=== PATIENT | female | born 1970 | race Caucasian/White ===

== ENCOUNTER 2016-12-21 08:30 | Outpatient (CLI) | payer OTHER | END 2016-12-21 08:31 | disposition home or self-care (01) | DX: K11.8 Other diseases of salivary glands (principal) ==

== ENCOUNTER 2019-06-10 12:33 | Outpatient (CLI) | payer BC, OTHER ==
--- NOTE | 2019-06-10 15:23 | Ultrasound Report ---
Reason: ELEVATED LFT Procedure Date: 06/10/2019 Accession Number: [id number] / [id number] Procedure: US - Abdomen Limited CPT Code: FULL RESULT: EXAM: ABDOMEN ULTRASOUND LIMITED, RUQ EXAM DATE: 06/10/2019 01:21 PM. CLINICAL HISTORY: Elevated LFTs. COMPARISON: Abdominal pelvic CT 09/05/2015. TECHNIQUE: Real-time scanning was performed with static images obtained. FINDINGS: Liver: The liver parenchyma is mild to moderately echogenic diffusely. No focal masses or enlargement. The right lobe measures 16.4 cm. Main portal vein flow: Hepatopetal. Gallbladder: Surgically absent. Biliary System: CBD measures 8 mm. No intrahepatic or extrahepatic ductal dilatation. Other: The right kidney is within normal limits. No ascites. IMPRESSION: 1. Mild to moderately fatty infiltrated liver as seen on prior CT. 2. Status post cholecystectomy. RADIA
== END 2019-06-10 12:34 | disposition home or self-care (01) ==
LOC: DI 12:33
PROVIDERS: ATTEND Internal Medicine
DX: K76.0 Fatty (change of) liver, not elsewhere classified (principal); Z90.49 Acquired absence of other specified parts of digestive tract
CPT/HCPCS: 76705

== ENCOUNTER 2019-11-19 08:19 | Emergency (ER) | payer OTHER ==
--- NOTE | 2019-11-19 08:57 | ED Physician Documentation ---
PD HPI ABD PAIN - Stated complaint Stated Complaint: ABD PX/FEVER - Chief complaint Chief Complaint: Abd Pain - History obtained from History obtained from: Patient - History of Present Illness Timing - onset: How many months ago (2-3) Timing - duration: Months Timing - details: Gradual onset, Waxing and waning Quality: Cramping, Aching, Pain Recently seen: Clinic (has seen PMD and also GI in [place] regarding the pain RUQ area, with prior scope, labs and U/S, without showing the cause of her pains.) Review of Systems Constitutional: denies: Fever, Chills Nose: denies: Rhinorrhea / runny nose, Congestion Throat: denies: Sore throat Respiratory: denies: Cough GI: reports: Abdominal Pain, Nausea, Diarrhea (soft since CCY in 1993). denies: Abdominal Swelling, Vomiting, Constipation Skin: denies: Rash, Lesions Musculoskeletal: denies: Neck pain, Back pain PD PAST MEDICAL HISTORY - Past Medical History Cardiovascular: Hypertension Endocrine/Autoimmune: HyPOthyroidism [employer] SAL[employer]ERSON: Other Psych: Anxiety - Past Surgical History Past Surgical History: Yes General: Cholecystectomy Ortho: Carpal Tunnel surgery /[employer]: Endometrial ablation, Hysterectomy - Present Medications Home Medications: Ambulatory Orders Medication Instructions Recorded Confirmed Sertraline HCl [Zoloft] 100 mg PO DAILY 09/06/15 06/26/16 Famotidine 20 mg PO DAILY #30 tablet 11/19/19 Hydrocodone/Acetaminophen [[place] 1 each PO Q6H PRN #20 tablet 11/19/19 5-325 Tablet] Losartan [Cozaar] 50 mg DAILY 11/19/19 11/19/19 Ondansetron Odt [Zofran] 4 mg TL Q6H PRN #20 tablet 11/19/19 Spironolactone 50 mg PO DAILY 11/19/19 11/19/19 Sucralfate [Carafate] 1 gm PO ACHS #60 tablet 11/19/19 busPIRone [Buspar] 10 mg BID 11/19/19 11/19/19 dexAMETHasone [Decadron] 4 mg PO DAILY #7 tablet 11/19/19 metFORMIN [Glucophage] 500 mg BID 11/19/19 11/19/19 - Allergies Allergies/Adverse Reactions: Allergies Allergy/AdvReac Type Severity Reaction Status Date / Time morphine AdvReac Itching Verified 11/19/19 08:31 - Social History Does the pt smoke?: No Smoking Status: Never smoker PD ED PE NORMAL - Vitals Vital signs reviewed: Yes - General General: Alert and oriented X 3, Well developed/nourished, Other (appears in pain) - HEENT HEENT: PERRL (nonicteric), Pharynx benign - Neck Neck: Supple, no meningeal sign, No adenopathy - Cardiac Cardiac: RRR, No murmur - Respiratory Respiratory: Clear bilaterally - Abdomen Abdomen: Normal bowel sounds, Soft, Non distended, No organomegaly, Other (tender RUQ with guarding but no percussion tenderness. ) Results - Vitals Vitals: Vital Signs - 24 hr 11/19/19 11/19/19 11/19/19 08:28 10:31 12:09 Temperature 36.1 C L 36.7 C Heart Rate 84 78 86 Respiratory 16 16 17 Rate Blood Pressure 155/80 H 154/75 H 131/85 H O2 Saturation 100 99 Oxygen O2 Source Room air - Labs Labs: Laboratory Tests 11/19/19 11/19/19 11/19/19 08:38 11:00 11:46 WBC 9.7 RBC 5.42 H Hgb 16.7 H Hct 51.3 H MCV 94.6 MCH 30.8 MCHC 32.6 RDW 14.0 Plt Count 322 MPV 11.1 H Neut # (Auto) 7.0 H Lymph # (Auto) 1.9 [place] # (Auto) 0.7 Eos # (Auto) 0.1 Baso # (Auto) 0.1 Absolute Nucleated RBC 0.00 Nucleated RBC % 0.0 Sodium 138 Potassium 4.1 Chloride 100 L Carbon Dioxide 27 Anion Gap 11.0 BUN 15 Creatinine 0.8 Estimated GFR (MDRD) 77 L Glucose 122 H Calcium 9.5 Total Bilirubin 1.2 H AST 21 ALT 19 Alkaline Phosphatase 40 L Total Protein 8.8 H Albumin 4.9 Globulin 3.9 Albumin/Globulin Ratio 1.3 Lipase 41 Urine Color YELLOW Urine Clarity CLEAR Urine pH 6.0 Ur Specific [place] 1.020 Urine Protein NEGATIVE Urine Glucose (UA) NEGATIVE Urine Ketones NEGATIVE Urine Occult Blood NEGATIVE Urine Nitrite NEGATIVE Urine Bilirubin NEGATIVE Urine Urobilinogen 0.2 (NORMAL) Ur Leukocyte Esterase NEGATIVE Ur Microscopic Review NOT INDICATED Urine Culture Comments NOT INDICATED Urine HCG, Qual NEGATIVE - Rads (name of study) RUQ abd U/S Radiology: Prelim report reviewed (CBD 10 mm, no noted stones. ) PD MEDICAL DECISION MAKING - ED course Complexity details: reviewed results, re-evaluated patient (feeling better with fluids and IV meds. ), considered differential (considered CBD dysfunction, but it appeared normal post op at 10 mm and no stones/sludge. LFTs are reasonable and lipase normal. So would consider gastritis/duodenitis, given the location of the pain, or alternatively some colitis of transverse colon. Consider adhesions as cause of the pain as well. ) Departure - Departure Disposition: 01 Home, Self Care Clinical Impression: Upper abdominal pain Condition: Stable Record reviewed to determine appropriate education?: Yes Instructions: ED Abdominal Pain Unkn Cause Follow-Up: Alfredo Gonzalez MD [Primary Care Provider] - [facility] [Provider Group] Prescriptions: dexAMETHasone [Decadron] 4 mg PO DAILY #7 tablet Famotidine 20 mg PO DAILY #30 tablet Hydrocodone/Acetaminophen [[place] 5-325 Tablet] 1 each PO Q6H PRN #20 tablet PRN Reason: Pain Ondansetron Odt [Zofran] 4 mg TL Q6H PRN #20 tablet PRN Reason: Nausea / Vomiting Sucralfate [Carafate] 1 gm PO ACHS #60 tablet Comments: Your blood test did not show any inflammatory change of the liver or pancreas. Your ultrasound showed a common bile duct about the normal size expected without any signs of stones or sludge. The pain in the upper abdomen then I would think may relate to either some irritation of the stomach or the initial part of the small intestine called the duodenum. We would treat this with medication to reduce stomach acids and also to coat the stomach and duodenum. With your history of colitis, it is possible there may be some inflammation of the colon that passes through the upper abdomen so we could add some Decadron anti-inflammatory for that possibility. Those particular changes typically do not show up well on imaging so I do not see a value of a CT scan or such at this point. Use ondansetron if needed for nausea and hydrocodone if needed for pain. Follow-up with your primary care and/or GI in about a next week, call for an appointment. Return if worsening. Discharge Date/Time: 11/19/19 12:58
[2019-11-19 09:03] LABS: BILIRUBIN,URINE NEGATIVE (NEGATIVE); GLUCOSE, URINE (UA) NEGATIVE (NEGATIVE); KETONES,URINE (UA) NEGATIVE (NEGATIVE); LEUKOCYTE ESTERASE, URINE NEGATIVE (NEGATIVE); NITRITE,URINE NEGATIVE (NEGATIVE); OCCULT BLOOD,URINE NEGATIVE (NEGATIVE); PROTEIN,URINE NEGATIVE (NEGATIVE); UROBILINOGEN,URINE 0.2 (NORMAL) E.U./dL (NORMAL)
[2019-11-19 09:07] LABS: CLARITY,URINE CLEAR (CLEAR); HCG UR QUAL NEGATIVE
[2019-11-19] MEDS ORDERED: MAG HYDROX/AL HYDROX/SIMETH 30 ML UDC PO STA (09:27)
[2019-11-19] MEDS ORDERED: FAMOTIDINE 20 MG/2 ML VIAL IVP STA (09:27)
[2019-11-19] MEDS ORDERED: HYDROmorphone 1 MG/ML CARPUJECT IVP STA ×2 (09:27→11:50)
[2019-11-19] MEDS ORDERED: ONDANSETRON 4 MG/2 ML VIAL IVP STA (09:27)
--- NOTE | 2019-11-19 11:18 | Ultrasound Report ---
Reason: RUQ pain; post CCY, eval CBD Procedure Date: 11/19/2019 Accession Number: [id number] / [id number] Procedure: US - Abdomen Limited CPT Code: Final Report FULL RESULT: EXAM: ABDOMEN ULTRASOUND LIMITED, RUQ EXAM DATE: 11/19/2019 11:01 AM. CLINICAL HISTORY: Right upper quadrant pain; post cholecystectomy, evaluate common bile duct. COMPARISON: ABDOMEN LIMITED 06/10/2019 12:41 PM ABDOMEN/PELVIS W/ 09/05/2015 7:29 PM. TECHNIQUE: Real-time scanning was performed with static images obtained. FINDINGS: Liver: Oval increased parenchymal echogenicity of the liver which limits sensitivity for underlying masses. No mass is seen. Liver spans at least 18.5 cm. Main portal vein flow: Hepatopetal. Gallbladder: Not seen, reported surgically absent. Biliary System: CBD measures 10 mm. This is potentially within the upper limits of normal for status post cholecystectomy. Other: None. IMPRESSION: Status post cholecystectomy. CBD caliber of up to 1 cm, can be normal status post cholecystectomy. RADIA
[2019-11-19 11:35] LABS: BASOPHILS # (AUTO) 0.1 10^3/uL (0.0-0.1); BASOPHILS % (AUTO) 0.7 %; EOSINOPHILS # (AUTO) 0.1 10^3/uL (0.0-0.7); EOSINOPHILS % (AUTO) 0.5 %; HGB - HEMOGLOBIN 16.7 g/dL (12.0-16.0); LYMPHOCYTES # (AUTO) 1.9 10^3/uL (1.5-3.5); LYMPHOCYTES % (AUTO) 19.3 %; MEAN CORPUSCULAR HEMOGLOBIN 30.8 pg (27.0-31.0); MEAN CORPUSCULAR HGB CONC 32.6 g/dL (32.0-36.0); MEAN CORPUSCULAR VOLUME 94.6 fL (81.0-99.0); MEAN PLATELET VOLUME 11.1 fL (7.9-10.8); MONOCYTES # (AUTO) 0.7 10^3/uL (0.0-1.0); MONOCYTES % (AUTO) 6.9 %; NEUTROPHILS % (AUTO) 72.1 %; PLT - PLATELET COUNT 322 10^3/uL (130-450); RED BLOOD COUNT 5.42 10^6/uL (4.20-5.40); WHITE BLOOD COUNT 9.7 x10^3/uL (4.8-10.8)
[2019-11-19] MEDS ORDERED: SUCRALFATE 1 GM/10 ML UDC PO STA (11:50)
[2019-11-19] MEDS ORDERED: DEXAMETHASONE 10 MG/ML VIAL IVP STA (11:51)
[2019-11-19] MEDS ORDERED: KETOROLAC 15 MG/ML VIAL IVP STA (11:51)
[2019-11-19 12:05] LABS: ALBUMIN 4.9 g/dL (3.2-5.5); ALBUMIN/GLOBULIN RATIO 1.3 (1.0-2.2); BILIRUBIN,TOTAL 1.2 mg/dL (0.2-1.0); CALCIUM 9.5 mg/dL (8.5-10.3); CREATININE 0.8 mg/dL (0.4-1.0); TOTAL PROTEIN 8.8 g/dL (6.7-8.2)
[2019-11-19 12:09] VITALS: BP 131/85
== END 2019-11-19 12:58 | disposition home or self-care (01) ==
LOC: ED 08:19
DX: R10.11 Right upper quadrant pain (principal); R11.0 Nausea; R19.7 Diarrhea, unspecified; Z90.49 Acquired absence of other specified parts of digestive tract; I10 Essential (primary) hypertension
CPT/HCPCS: 36415; 76705; 80053; 81003; 81025; 83690; 85025; 96374; 96375; 99284; 99285; A9270; J1170; 81001; 87086

== ENCOUNTER 2021-04-05 15:41 | Outpatient (CLI) | payer OTHER ==
--- NOTE | 2021-04-05 16:27 | XRAY Report ---
PROCEDURE: Hip w/Pelvis 1V RT INDICATIONS: R HIP PX TECHNIQUE: AP pelvis with lateral view(s) of the unilateral right hip(s). COMPARISON: CT abdomen/pelvis 09/05/15. FINDINGS: Bones: No fractures or dislocations. Pelvic ring appears intact. No suspicious bony lesions. Soft tissues: The visualized bowel gas pattern is normal. No suspicious soft tissue calcifications. IMPRESSION: This is a normal study. Source of asymmetric right-sided hip pain is not found. Reviewed by: Tyler Gu MD on 04/05/2021 4:26 PM PDT Approved by: Tyler Gu MD on 04/05/2021 4:26 PM PDT Station ID: [id number]
== END 2021-04-05 15:42 | disposition home or self-care (01) ==
LOC: DI.N 15:41
PROVIDERS: ATTEND Family Medicine
DX: M25.551 Pain in right hip (principal)

== ENCOUNTER 2021-05-31 12:44 | Outpatient (CLI) | payer OTHER ==
--- NOTE | 2021-05-31 16:47 | MRI Report ---
PROCEDURE: Hip RT W/O INDICATIONS: PAIN IN RIGHT HIP TECHNIQUE: Noncontrast coronal T1 spin echo and STIR through the bony pelvis. Coronal and axial T2 fast spin ec ho with fat saturation, sagittal T1 spin echo, and oblique axial T2 fast spin echo with fat saturatio n through the hip. COMPARISON: None. FINDINGS: Bones: No fracture or focal osseous destruction. No avascular necrosis of the femoral heads. Lower lumbar spondylosis and facet arthropathy. Sacroiliac joints: Normal. Tendons: Gluteus minimus: Intact. No atrophy. Gluteus medius: Intact. No atrophy. Iliopsoas tendon: There is mild thickening, T2 hyperintensity and adjacent soft tissue edema at the i nsertion. No complete rupture. No evidence of old fracture. Hamstring tendon origin. Intact. Labrum and cartilage: Acetabular labrum: Intact. Cartilage: Cartilage appears intact. Alpha angle of the femur: Within normal limits at less than 55 degrees. Soft tissues: Visualized muscles: Normal bulk and internal signal. Proximal sciatic neurovascular bundle: Normal. Pelvic free fluid: None. Bladder: Normal. Genitourinary structures and bowel loops: In the included right adnexal region, there is a 1.7 cm cy stic appearing T2 hyperintense lesion on image 36/601. This could be followed up with dedicated ultra sound as clinically warranted. IMPRESSION: Acute strain of the insertion of the iliopsoas tendon. Nonspecific right pelvic cystic-appearing lesion as detailed above measuring 1.7 cm. Further assessme nt and/or long-term surveillance with dedicated ultrasound can be performed as clinically warranted, or MRI if not sonographically visible. Reviewed by: Caleb Velasquez MD on 05/31/2021 4:46 PM PDT Approved by: Caleb Velasquez MD on 05/31/2021 4:46 PM PDT Station ID: [id number]
== END 2021-05-31 12:45 | disposition home or self-care (01) ==
LOC: DI 12:44
PROVIDERS: ATTEND Family Medicine
DX: S76.011A Strain of muscle, fascia and tendon of right hip, initial encounter (principal); N94.89 Other specified conditions associated with female genital organs and menstrual cycle

== ENCOUNTER 2022-11-06 09:13 | Emergency (ER) | payer OTHER ==
[2022-11-06 09:34] VITALS: BP 145/79
--- NOTE | 2022-11-06 10:30 | XRAY Report ---
PROCEDURE: Ankle 3 View LT INDICATIONS: Trauma TECHNIQUE: 3 views of the ankle were acquired. COMPARISON: None FINDINGS: Bones: There is a comminuted fracture of the distal fibula at the level of the tibiotalar joint space . There is no gross widening of the syndesmosis. There is minimal displacement.. Ankle mortise is no rmally aligned. No suspicious bony lesions. Soft tissues: Ankle edema is present. Achilles tendon appears normal. IMPRESSION: Minimally displaced distal fibular fracture. Reviewed by: Mila Booth MD on 11/06/2022 10:29 AM [facility] Approved by: Mila Booth MD on 11/06/2022 10:29 AM [facility] Station ID: [id number]
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
== END 2022-11-06 15:58 | disposition home or self-care (01) ==
LOC: ED 09:13
DX: S82.832A Other fracture of upper and lower end of left fibula, initial encounter for closed fracture (principal); Y93.29 Activity, other involving ice and snow
CPT/HCPCS: 29515